=== PATIENT | female | born 1970 | race Caucasian/White ===

== ENCOUNTER 2019-12-23 23:07 | Emergency (ER) | payer MEDICARE, MEDICAID ==
[~2019-12-23] VITALS: Ht 149.9 cm; Wt 75.3 kg
[~2019-12-23 23:07] MED LIST: ADVAIR 500-501 EACH INH; ALAVERT10 M1 PO; ALBUTEROL2.5 MG/31 INH; ALLERGY RELIEF10 M3 PO; AZOR 10-40 MG1 EACH PO; COLACE100 MG PO; DOXEPIN 10 MG C10 MG PO; DUONEB 2.5-0.5 M3 ML INH; FLEXERIL PO; FLONASE 0.05%50 MCG NASAL; FLONASE16 GM INH; HYDROCHLOROTHIA25 M2 PO; LEVAQUIN 500 M500 M3 PO; MUCINEX600 MG PO; NAPROSYN500 MG PO; NORCO 5-325 TA1 EACH PO; PRAVASTATIN SOD10 MG PO; PREDNISONE 10 M10 M1 PO; PREDNISONE 10 M10 MG PO; PREMARIN0.3 MG PO; PREMARIN1.25 MG PO; PROMETHAZINE/C118 ML PO; PROZAC20 MG PO; SEROQUEL 25 MG25 M1 PO; SINGULAIR 10 MG10 M1 PO; SYNTHROID75 MCG PO; TELMISARTAN-HC1 EACH PO; VALIUM5 MG; VITAMIN D; ZPAK PO
[2019-12-23] MEDS ORDERED: BIOTIN1 MG PO (23:30)
[2019-12-23 23:51] LABS: ABSOLUTE BASOPHILS 0.1 thou/uL (0.0-0.2); ABSOLUTE EOSINOPHILS 0.2 thou/uL (0.0-0.7); ABSOLUTE MONOCYTES 0.6 thou/uL (0.0-1.2); ABSOLUTE NEUTROPHILS 3.3 thou/uL (1.6-8.1); BASOPHILS 0.9 %; EOSINOPHILS 2.7 %; HEMATOCRIT 37.1 % (37.0-47.0); HEMOGLOBIN 12.5 gm/dL (12.0-15.0); LYMPHOCYTES 32.4 %; MCHC 33.7 g/dL (28.0-37.0); MCV 91.8 fL (80.0-100.0); MONOCYTES 9.6 %; MPV 6.8 fl. (7.2-11.1); NUCLEATED RBCS 0 /100WBC; PLATELET COUNT* 205 thou/uL (150-400); POLYS 54.4 %; RBC 4.04 mil/uL (4.20-5.00); RDW-CV 13.8 % (10.5-14.5); WBC 6.1 thou/uL (4.0-11.0)
[2019-12-24 00:04] LABS: CALCIUM 8.5 mg/dL (8.5-10.1); CREATININE 0.7 mg/dL (0.6-1.3)
[2019-12-24 00:06] LABS: URINE BILIRUBIN NEGATIVE (Negative); URINE BLOOD NEGATIVE (Negative); URINE CLARITY CLEAR; URINE COLOR YELLOW; URINE GLUCOSE-RANDOM NEGATIVE (Negative); URINE KETONES TRACE (Negative); URINE LEUKOCYTES-REFLEX NEGATIVE (Negative); URINE NITRITE-REFLEX NEGATIVE (Negative); URINE PROTEIN NEGATIVE (Negative); URINE SPECIFIC GRAVITY 1.025 (1.005-1.030)
[2019-12-24 00:09] LABS: ALBUMIN 3.1 g/dL (3.4-5.0); TOTAL BILIRUBIN 0.2 mg/dL (<0.1-1.0); TOTAL PROTEIN 6.9 g/dL (6.4-8.2)
[2019-12-24 02:14] VITALS: BP 121/72
== END 2019-12-24 02:17 | disposition home or self-care (01) ==
LOC: M.ERS 23:07
PROVIDERS: Personal Emergency Response Attendant
DX: K59.00 Constipation, unspecified (principal); J45.909 Unspecified asthma, uncomplicated; Z98.84 Bariatric surgery status; Z79.899 Other long term (current) drug therapy; Z88.0 Allergy status to penicillin; Z87.891 Personal history of nicotine dependence; Z90.49 Acquired absence of other specified parts of digestive tract

== ENCOUNTER 2020-01-31 17:39 | Emergency (ER) | payer MEDICARE, MEDICAID ==
[~2020-01-31] VITALS: Ht 149.9 cm; Wt 70.8 kg
[~2020-01-31 17:39] MED LIST changes: +BIOTIN1 MG PO
[2020-01-31 18:32] LABS: URINE BILIRUBIN NEGATIVE (Negative); URINE BLOOD NEGATIVE (Negative); URINE CLARITY TURBID; URINE COLOR YELLOW; URINE GLUCOSE-RANDOM NEGATIVE (Negative); URINE KETONES TRACE (Negative); URINE LEUKOCYTES-REFLEX NEGATIVE (Negative); URINE NITRITE-REFLEX NEGATIVE (Negative); URINE PROTEIN NEGATIVE (Negative); URINE SPECIFIC GRAVITY >= 1.030 (1.005-1.030); URINE UROBILINOGEN 0.2 E.U./dl (0.2-1.0)
[2020-01-31 18:40] LABS: MUCUS 4-6 Moderate strn/LPF (None Seen); SQUAMOUS >10 Many /LPF (0-3)
[2020-01-31 18:41] LABS: HYALINE CASTS 4-10 Moderate /LPF (None Seen)
[2020-01-31 18:42] LABS: ABSOLUTE BASOPHILS 0.1 thou/uL (0.0-0.2); ABSOLUTE EOSINOPHILS 0.1 thou/uL (0.0-0.7); ABSOLUTE LYMPHOCYTES 1.7 thou/uL (0.8-5.3); ABSOLUTE MONOCYTES 0.4 thou/uL (0.0-1.2); ABSOLUTE NEUTROPHILS 2.5 thou/uL (1.6-8.1); BASOPHILS 1.1 %; EOSINOPHILS 2.8 %; HEMATOCRIT 41.5 % (37.0-47.0); MCH 31.1 pg (26.0-34.0); MCHC 33.8 g/dL (28.0-37.0); MCV 92.1 fL (80.0-100.0); MONOCYTES 9.2 %; NUCLEATED RBCS 0 /100WBC; PLATELET COUNT* 221 thou/uL (150-400); POLYS 51.9 %; RDW-CV 13.4 % (10.5-14.5); WBC 4.8 thou/uL (4.0-11.0)
[2020-01-31 18:42] LABS: CALCIUM OXALATE 0-3 Few /LPF (None Seen); URINE RBC None Seen /HPF (0-2); URINE WBC-REFLEX 0-5 Rare /HPF (0-5)
[2020-01-31 18:55] LABS: CALCIUM 8.9 mg/dL (8.5-10.1); CREATININE 0.8 mg/dL (0.6-1.3); POTASSIUM 3.6 mmol/L (3.5-5.1)
[2020-01-31 19:00] LABS: ALBUMIN 3.7 g/dL (3.4-5.0); TOTAL BILIRUBIN 0.3 mg/dL (<0.1-1.0); TOTAL PROTEIN 7.4 g/dL (6.4-8.2)
[2020-01-31] MEDS ORDERED: COLACE100 MG PO (19:39)
[2020-01-31] MEDS ORDERED: BENTYL 20 MG TA20 M1 PO (19:39)
[2020-01-31] MEDS ORDERED: MIRALAX17 G1 PO (19:39)
[2020-01-31 19:50] VITALS: BP 153/90
--- NOTE | 2020-02-01 18:21 | EKG ---
[place] [address] ELECTROCARDIOGRAM REPORT Name: SUZE STOCKTON Room: [facility]#: [id number] Admission: 01/31/20 Attend Phys: Discharge: 01/31/20 Date of : 66 Date of Service: 01/31/201923 Report #: [id number] THIS REPORT FOR: //name// [facility] ED Test Date: 2020-01-31 Test Time: 19:24:47 Pat Name: SUZE STOCKTON Department: Room: Gender: Crystal Gazer: [place] : 1970 Requested By: Tia Emerson Order Number: [id number] MD: Mason Lynn Measurements Intervals [place] Rate: 61 P: 38 [place]: 185 QRS: -29 QRSD: 122 T: 47 QT: 454 QTc: 458 Interpretive Statements Sinus rhythm Left bundle branch block Compared to ECG 06/02/2015 22:26:09 Left bundle-branch block now present Sinus tachycardia no longer present Left-axis deviation no longer present Electronically Signed On 02-01-2020 18:21:10 [employer] by Mason Lynn [email or web address] <ELECTRONICALLY SIGNED> By: Libby Lynn MD, [facility] 02/01/20 182 23 23 Libby Lynn MD, [facility] /EPI
== END 2020-01-31 19:50 | disposition home or self-care (01) ==
LOC: M.ERS 17:39
PROVIDERS: Nurse Practitioner Family
DX: K44.9 Diaphragmatic hernia without obstruction or gangrene (principal); I44.7 Left bundle-branch block, unspecified; K59.00 Constipation, unspecified; J45.909 Unspecified asthma, uncomplicated; Z87.891 Personal history of nicotine dependence; Z88.0 Allergy status to penicillin; Z79.899 Other long term (current) drug therapy; Z90.710 Acquired absence of both cervix and uterus; Z98.890 Other specified postprocedural states